=== PATIENT | male | born 1965 | race African-American/Black ===

== ENCOUNTER 2018-02-09 16:29 | Inpatient (IN) | payer BC ==
[~2018-02-09] VITALS: Ht 182.9 cm; Wt 123.7 kg
[2018-02-09 17:16] LABS: BASOPHIL (%) 1.1 % (0-1); BASOPHIL COUNT 0.1 K/uL (0-0.1); EOSINOPHIL (%) 5.2 % (0-5); EOSINOPHIL COUNT 0.6 K/uL (0-0.3); HEMATOCRIT 33.6 % (38.0-50.0); HEMOGLOBIN 11.2 G/DL (12.5-16.6); IMMATURE GRANULOCYTE (%) 0.4 % (0.0-0.7); LYMPHOCYTE (%) 15.7 % (15-42); LYMPHOCYTE COUNT 1.8 K/uL (1.0-2.8); MCH 24.4 PG (29.0-34.0); MCHC 33.3 G/DL (30.0-36.0); MCV 73.2 FL (86-99); MONOCYTE (%) 8.7 % (3-12); NEUTROPHIL (%) 68.9 % (45-76); PLATELET COUNT 592 K/uL (156-360); RBC DIS.WIDTH-CV 15.8 % (11.8-14.6); RED BLOOD COUNT 4.59 M/uL (4.00-5.50); WHITE BLOOD COUNT 11.6 K/uL (4.1-10.2)
[2018-02-09 17:17] LABS: INTER. NORMALIZED RATIO 1.2
[2018-02-09 17:21] LABS: ALBUMIN 3.5 g/dL (3.2-4.8); CHLORIDE 110 mEq/L (99-109); POTASSIUM 3.9 mEq/L (3.7-5.4); SODIUM 140 mEq/L (136-147)
[2018-02-09 17:23] LABS: BASE EXCESS -4.2 mEq/L (-3 to +3); BICARBONATE 19.6 mEq/L (22-26); CARBOXY HGB 1.9 % (0-5); COMMENTS - BLOOD GASES A+C+; DEVICE NCH; METHEMOGLOBIN 0.5 % (0-1.5); O2 FLOW 10 L/MIN; PCO2 31 mm Hg (35-45); PO2 67 mm Hg (80-100); SITE RR; TOTAL RESP RATE 33 resp/min; pH 7.41 (7.35-7.45)
[2018-02-09 17:23] LABS: GLUCOSE 105 mg/dL (70-99); TOTAL PROTEIN 7.1 g/dL (6.4-8.3)
[2018-02-09 17:25] LABS: TOTAL BILIRUBIN 0.4 mg/dL (0.0-1.0)
[2018-02-09 17:27] LABS: ALKALINE PHOSPHATASE 69 IU/L (3-129); CREATININE 1.9 mg/dL (0.6-1.3); GFR ESTIMATE (CALCULATED) 49 mL/min/ (58.99-99999)
[2018-02-09 17:28] LABS: UREA NITROGEN (BUN) 21 mg/dL (9-23)
[2018-02-09 17:29] LABS: AST (GOT) 16 IU/L (2-34)
[2018-02-09 17:30] LABS: ALT (GPT) 20 IU/L (3-49); LIPASE 30 U/L (1.0-51.0)
[2018-02-09 17:37] LABS: TROP-I INTERPRETATION NEGATIVE; TROPONIN-I 0.02 ng/mL (0.0-0.30)
[2018-02-09] MEDS ORDERED: MINOXIDIL10 MG PO (18:09)
[2018-02-09] MEDS ORDERED: PROAIR HFA8.5 GM IH (18:09)
[2018-02-09] MEDS ORDERED: NORVASC5 MG PO (18:10)
[2018-02-09] MEDS ORDERED: LABETALOL HCL200 MG PO (18:10)
[2018-02-09] MEDS ORDERED: FUROSEMIDE20 MG PO (18:10)
[2018-02-09] MEDS ORDERED: TYLENOL EXTRA500 MG PO (18:10)
[2018-02-09 19:28] LABS: APPEARANCE CLEAR ((CLEAR)); BILIRUBIN NEGATIVE; BLOOD NEGATIVE; COLOR YELLOW ((YELLOW)); GLUCOSE (STRIP) NEGATIVE; KETONES NEGATIVE; LEUKOCYTES NEGATIVE; NITRITE NEGATIVE; PROTEIN (STRIP) 100; SPECIFIC GRAVITY 1.014 (1.000-1.030); UROBILINOGEN 0.2 MG/DL (0.2-1.0)
[2018-02-09 19:30] LABS: BACTERIA NONE SEEN /HPF; EPITHELIAL CELLS NONE SEEN /HPF; MUCUS TRACE /LPF; RED BLOOD CELLS 0-5 /HPF (0-5); UCUL ADDED? NO; WHITE BLOOD CELLS 0-5 /HPF (0-5)
[2018-02-09 22:03] VITALS: BP 200/96
[2018-02-10 02:00] VITALS: BP 150/76
[2018-02-10 05:28] LABS: TROP-I INTERPRETATION NEGATIVE; TROPONIN-I 0.02 ng/mL (0.0-0.30)
[2018-02-10 06:20] LABS: BASOPHIL (%) 1.4 % (0-1); BASOPHIL COUNT 0.1 K/uL (0-0.1); EOSINOPHIL (%) 4.4 % (0-5); EOSINOPHIL COUNT 0.5 K/uL (0-0.3); HEMATOCRIT 32.1 % (38.0-50.0); HEMOGLOBIN 10.2 G/DL (12.5-16.6); IMMATURE GRANULOCYTE (%) 0.5 % (0.0-0.7); LYMPHOCYTE (%) 12.8 % (15-42); LYMPHOCYTE COUNT 1.3 K/uL (1.0-2.8); MCH 23.4 PG (29.0-34.0); MCHC 31.8 G/DL (30.0-36.0); MCV 73.6 FL (86-99); MONOCYTE (%) 8.8 % (3-12); MONOCYTE COUNT 0.9 K/uL (0-0.8); NEUTROPHIL (%) 72.1 % (45-76); NEUTROPHIL COUNT 7.4 K/uL (1.8-6.4); PLATELET COUNT 541 K/uL (156-360); RBC DIS.WIDTH-CV 15.8 % (11.8-14.6); RBC DIS.WIDTH-SD 42.4 % (39-53); RED BLOOD COUNT 4.36 M/uL (4.00-5.50); WHITE BLOOD COUNT 10.2 K/uL (4.1-10.2)
[2018-02-10 06:36] LABS: CHLORIDE 103 MEQ/L (99-109); CREATININE 1.8 MG/DL (0.6-1.3); GFR ESTIMATE (CALCULATED) 52 mL/min/ (58.99-99999); GLUCOSE 104 mg/dL (70-99); SODIUM 133 MEQ/L (136-147); UREA NITROGEN (BUN) 20 mg/dL (9-23)
[2018-02-10 06:39] LABS: POTASSIUM 4.7 MEQ/L (3.7-5.4)
[2018-02-10 07:15] VITALS: BP 145/76
[2018-02-10 10:57] LABS: TROP-I INTERPRETATION NEGATIVE; TROPONIN-I 0.01 ng/mL (0.0-0.30)
[2018-02-10 11:40] VITALS: BP 134/67
[2018-02-10 15:20] VITALS: BP 142/69
[2018-02-10 19:24] VITALS: BP 172/79
[2018-02-10 23:20] VITALS: BP 133/66
[2018-02-11 04:11] VITALS: BP 147/67
[2018-02-11 07:19] LABS: CHLORIDE 106 MEQ/L (99-109); CREATININE 1.8 MG/DL (0.6-1.3); GFR ESTIMATE (CALCULATED) 52 mL/min/ (58.99-99999); GLUCOSE 100 mg/dL (70-99); POTASSIUM 4.3 MEQ/L (3.7-5.4); SODIUM 139 MEQ/L (136-147); UREA NITROGEN (BUN) 20 mg/dL (9-23)
[2018-02-11 07:20] VITALS: BP 169/69
[2018-02-11 07:21] LABS: BASOPHIL (%) 0.8 % (0-1); BASOPHIL COUNT 0.1 K/uL (0-0.1); EOSINOPHIL (%) 4.6 % (0-5); EOSINOPHIL COUNT 0.4 K/uL (0-0.3); HEMATOCRIT 32.6 % (38.0-50.0); HEMOGLOBIN 10.1 G/DL (12.5-16.6); IMMATURE GRANULOCYTE (%) 0.4 % (0.0-0.7); LYMPHOCYTE (%) 14.7 % (15-42); LYMPHOCYTE COUNT 1.4 K/uL (1.0-2.8); MCH 23.1 PG (29.0-34.0); MCV 74.6 FL (86-99); MONOCYTE (%) 8.1 % (3-12); MONOCYTE COUNT 0.8 K/uL (0-0.8); NEUTROPHIL (%) 71.4 % (45-76); NEUTROPHIL COUNT 6.8 K/uL (1.8-6.4); PLATELET COUNT 524 K/uL (156-360); RBC DIS.WIDTH-CV 16.1 % (11.8-14.6); RBC DIS.WIDTH-SD 43.6 % (39-53); RED BLOOD COUNT 4.37 M/uL (4.00-5.50); WHITE BLOOD COUNT 9.5 K/uL (4.1-10.2)
[2018-02-11 11:50] VITALS: BP 158/70
[2018-02-11 17:04] VITALS: BP 141/68
[2018-02-11 19:08] VITALS: BP 138/67
[2018-02-11 23:13] VITALS: BP 135/62
[2018-02-12] VITALS (7 sets, daily range): BP systolic 123–186; BP diastolic 60–83
[2018-02-12 07:31] LABS: BASOPHIL (%) 0.9 % (0-1); BASOPHIL COUNT 0.1 K/uL (0-0.1); EOSINOPHIL (%) 6.8 % (0-5); EOSINOPHIL COUNT 0.6 K/uL (0-0.3); HEMATOCRIT 30.7 % (38.0-50.0); HEMOGLOBIN 9.8 G/DL (12.5-16.6); IMMATURE GRANULOCYTE (%) 0.4 % (0.0-0.7); LYMPHOCYTE (%) 15.6 % (15-42); LYMPHOCYTE COUNT 1.3 K/uL (1.0-2.8); MCH 23.7 PG (29.0-34.0); MCHC 31.9 G/DL (30.0-36.0); MCV 74.2 FL (86-99); MONOCYTE (%) 9.5 % (3-12); MONOCYTE COUNT 0.8 K/uL (0-0.8); NEUTROPHIL (%) 66.8 % (45-76); NEUTROPHIL COUNT 5.7 K/uL (1.8-6.4); PLATELET COUNT 557 K/uL (156-360); RBC DIS.WIDTH-CV 15.9 % (11.8-14.6); RBC DIS.WIDTH-SD 43.2 % (39-53); RED BLOOD COUNT 4.14 M/uL (4.00-5.50); WHITE BLOOD COUNT 8.6 K/uL (4.1-10.2)
[2018-02-12 08:08] LABS: ALBUMIN 2.8 G/DL (3.2-4.8); ALKALINE PHOSPHATASE 43 IU/L (3-129); ALT (GPT) 15 IU/L (3-49); AST (GOT) 16 IU/L (2-34); CHLORIDE 107 MEQ/L (99-109); CREATININE 1.8 MG/DL (0.6-1.3); GFR ESTIMATE (CALCULATED) 52 mL/min/ (58.99-99999); GLUCOSE 97 mg/dL (70-99); POTASSIUM 4.2 MEQ/L (3.7-5.4); SODIUM 137 MEQ/L (136-147); TOTAL BILIRUBIN 0.5 MG/DL (0.0-1.0); TOTAL PROTEIN 5.7 G/DL (6.4-8.3); UREA NITROGEN (BUN) 15 mg/dL (9-23)
[2018-02-13 04:10] VITALS: BP 157/78
[2018-02-13 06:57] LABS: HEMATOCRIT 28.9 % (38.0-50.0); HEMOGLOBIN 9.4 G/DL (12.5-16.6); MCHC 32.5 G/DL (30.0-36.0); MCV 73.7 FL (86-99); PLATELET COUNT 615 K/uL (156-360); RBC DIS.WIDTH-CV 15.9 % (11.8-14.6); RBC DIS.WIDTH-SD 42.5 % (39-53); RED BLOOD COUNT 3.92 M/uL (4.00-5.50); WHITE BLOOD COUNT 9.1 K/uL (4.1-10.2)
[2018-02-13 07:17] LABS: CHLORIDE 107 MEQ/L (99-109); CREATININE 1.8 MG/DL (0.6-1.3); GFR ESTIMATE (CALCULATED) 52 mL/min/ (58.99-99999); GLUCOSE 90 mg/dL (70-99); POTASSIUM 4.2 MEQ/L (3.7-5.4); UREA NITROGEN (BUN) 14 mg/dL (9-23)
[2018-02-13 07:28] LABS: SODIUM 144 MEQ/L (136-147)
[2018-02-13 07:40] VITALS: BP 177/82
[2018-02-13 12:12] VITALS: BP 170/80
[2018-02-13 16:03] VITALS: BP 172/79
[2018-02-13 20:05] VITALS: BP 173/81
[2018-02-14 00:10] VITALS: BP 140/65
[2018-02-14 04:15] VITALS: BP 188/90
[2018-02-14 06:10] LABS: HEMATOCRIT 32.1 % (38.0-50.0); HEMOGLOBIN 10.3 G/DL (12.5-16.6); MCH 23.5 PG (29.0-34.0); MCHC 32.1 G/DL (30.0-36.0); MCV 73.3 FL (86-99); PLATELET COUNT 608 K/uL (156-360); RBC DIS.WIDTH-CV 15.6 % (11.8-14.6); RBC DIS.WIDTH-SD 41.6 % (39-53); RED BLOOD COUNT 4.38 M/uL (4.00-5.50)
[2018-02-14 07:29] VITALS: BP 179/86
[2018-02-14 09:11] VITALS: BP 144/68
[2018-02-14] MEDS ORDERED: DUONEB 2.5-0.5 M3 ML AEROSOL (11:24)
[2018-02-14] MEDS ORDERED: LEVAQUIN500 MG PO (11:24)
[2018-02-14] MEDS ORDERED: DULERA 100 MCG/13 GM IH (11:24)
[2018-02-14] MEDS ORDERED: MUCINEX600 MG PO (11:24)
[2018-02-14 11:28] VITALS: BP 132/71
[2018-02-14] MEDS ORDERED: SYMBICORT60 INHALA1 IH (12:40)
== END 2018-02-14 13:25 | disposition home or self-care (01) | DRG 189 ==
LOC: EME 16:29 → EDOF 19:57 → 5EAST 19:57 → ENRESERV 19:59 → 5EAST 21:46
PROVIDERS: Emergency Medicine; Hospitalist; Internal Medicine
DX: J96.01 Acute respiratory failure with hypoxia (principal); J15.9 Unspecified bacterial pneumonia; E87.2 Acidosis; R71.8 Other abnormality of red blood cells; R74.8 Abnormal levels of other serum enzymes; E11.22 Type 2 diabetes mellitus with diabetic chronic kidney disease; N18.3 Chronic kidney disease, stage 3 (moderate); G47.30 Sleep apnea, unspecified; I10 Essential (primary) hypertension; D64.9 Anemia, unspecified; E66.01 Morbid (severe) obesity due to excess calories; Z68.36 Body mass index [BMI] 36.0-36.9, adult; Z87.891 Personal history of nicotine dependence; Z86.73 Personal history of transient ischemic attack (TIA), and cerebral infarction without residual deficits; Z23 Encounter for immunization
CPT/HCPCS: 36600; 71045; 71046; 71260; 80048; 80053; 81003; 82728; 82803; 83605; 83690; 83880; 84484; 85025; 85027; 85610; 85730; 87040; 87070; 87205; 87449; 87502; 90686; 93005; 94640; 94640 76; 94667; 94760; 94799; 99202; 99281; 99285; J0295; J0696; J1644; J1956; J7030; J7050

== ENCOUNTER 2018-02-18 18:25 | Inpatient (IN) | payer BC ==
[~2018-02-18] VITALS: Ht 182.9 cm; Wt 121.0 kg
[~2018-02-18 18:25] MED LIST: DULERA 100 MCG/13 GM IH; DUONEB 2.5-0.5 M3 ML AEROSOL; FUROSEMIDE20 MG PO; LABETALOL HCL200 MG PO; LEVAQUIN500 MG PO; MINOXIDIL10 MG PO; MUCINEX600 MG PO; NORVASC5 MG PO; PROAIR HFA8.5 GM IH; SYMBICORT60 INHALA1 IH; TYLENOL EXTRA500 MG PO
[2018-02-18 19:50] LABS: CARBON DIOXIDE (BICARBONATE) 23.9 MEQ/L (20-31)
[2018-02-18 20:01] LABS: CHLORIDE 108 mEq/L (99-109); POTASSIUM 4.2 mEq/L (3.7-5.4); SODIUM 141 mEq/L (136-147)
[2018-02-18 20:02] LABS: GLUCOSE 124 mg/dL (70-99)
[2018-02-18 20:04] LABS: BASOPHIL (%) 0.7 % (0-1); BASOPHIL COUNT 0.1 K/uL (0-0.1); EOSINOPHIL (%) 0.9 % (0-5); EOSINOPHIL COUNT 0.1 K/uL (0-0.3); HEMOGLOBIN 10.7 G/DL (12.5-16.6); IMMATURE GRANULOCYTE (%) 0.5 % (0.0-0.7); LYMPHOCYTE (%) 4.6 % (15-42); LYMPHOCYTE COUNT 0.6 K/uL (1.0-2.8); MCH 24.3 PG (29.0-34.0); MCHC 33.4 G/DL (30.0-36.0); MCV 72.6 FL (86-99); MONOCYTE (%) 7.7 % (3-12); NEUTROPHIL (%) 85.6 % (45-76); NEUTROPHIL COUNT 11.1 K/uL (1.8-6.4); PLATELET COUNT 623 K/uL (156-360); RBC DIS.WIDTH-CV 15.3 % (11.8-14.6); RBC DIS.WIDTH-SD 40.3 % (39-53); RED BLOOD COUNT 4.41 M/uL (4.00-5.50); WHITE BLOOD COUNT 12.9 K/uL (4.1-10.2)
[2018-02-18 20:06] LABS: CREATININE 2.2 mg/dL (0.6-1.3); GFR ESTIMATE (CALCULATED) 41 mL/min/ (58.99-99999)
[2018-02-18 20:07] LABS: UREA NITROGEN (BUN) 19 mg/dL (9-23)
[2018-02-18 20:15] LABS: TROP-I INTERPRETATION NEGATIVE; TROPONIN-I 0.03 ng/mL (0.0-0.30)
[2018-02-18] MEDS ORDERED: LEVOFLOXACIN500 MG PO (23:07)
[2018-02-18] MEDS ORDERED: LONITEN10 MG PO (23:09)
[2018-02-18] MEDS ORDERED: AMLODIPINE BESYL5 MG PO (23:10)
[2018-02-18] MEDS ORDERED: LONITEN2.5 MG PO (23:11)
[2018-02-18] MEDS ORDERED: MUCINEX600 MG PO (23:18)
[2018-02-19 04:12] VITALS: BP 136/66
[2018-02-19 06:15] LABS: BASOPHIL (%) 0.5 % (0-1); BASOPHIL COUNT 0.1 K/uL (0-0.1); EOSINOPHIL (%) 0 % (0-5); HEMATOCRIT 31.8 % (38.0-50.0); HEMOGLOBIN 10.2 G/DL (12.5-16.6); IMMATURE GRANULOCYTE (%) 0.4 % (0.0-0.7); LYMPHOCYTE (%) 3.7 % (15-42); LYMPHOCYTE COUNT 0.5 K/uL (1.0-2.8); MCH 24.1 PG (29.0-34.0); MCHC 32.1 G/DL (30.0-36.0); MONOCYTE (%) 1.7 % (3-12); MONOCYTE COUNT 0.2 K/uL (0-0.8); NEUTROPHIL (%) 93.7 % (45-76); NEUTROPHIL COUNT 11.3 K/uL (1.8-6.4); PLATELET COUNT 597 K/uL (156-360); RBC DIS.WIDTH-CV 15.8 % (11.8-14.6); RBC DIS.WIDTH-SD 42.8 % (39-53); RED BLOOD COUNT 4.24 M/uL (4.00-5.50); WHITE BLOOD COUNT 12.1 K/uL (4.1-10.2)
[2018-02-19 06:31] LABS: CHLORIDE 106 MEQ/L (99-109); CREATININE 2.1 MG/DL (0.6-1.3); GFR ESTIMATE (CALCULATED) 43 mL/min/ (58.99-99999); GLUCOSE 130 mg/dL (70-99); SODIUM 138 MEQ/L (136-147); UREA NITROGEN (BUN) 21 mg/dL (9-23)
[2018-02-19 06:33] LABS: POTASSIUM 5.2 MEQ/L (3.7-5.4)
[2018-02-19 07:00] VITALS: BP 145/69
[2018-02-19 11:08] VITALS: BP 127/67
[2018-02-19 15:18] VITALS: BP 124/62
[2018-02-19 19:21] VITALS: BP 133/68
[2018-02-19 23:04] VITALS: BP 130/62
[2018-02-20 03:26] VITALS: BP 118/58
[2018-02-20 07:02] LABS: BASOPHIL (%) 0.2 % (0-1); EOSINOPHIL (%) 0 % (0-5); HEMATOCRIT 30.7 % (38.0-50.0); HEMOGLOBIN 9.7 G/DL (12.5-16.6); IMMATURE GRANULOCYTE (%) 0.3 % (0.0-0.7); LYMPHOCYTE (%) 3.9 % (15-42); LYMPHOCYTE COUNT 0.5 K/uL (1.0-2.8); MCH 23.3 PG (29.0-34.0); MCHC 31.6 G/DL (30.0-36.0); MCV 73.8 FL (86-99); MONOCYTE COUNT 0.4 K/uL (0-0.8); NEUTROPHIL (%) 92.6 % (45-76); NEUTROPHIL COUNT 11.3 K/uL (1.8-6.4); PLATELET COUNT 626 K/uL (156-360); RBC DIS.WIDTH-CV 15.4 % (11.8-14.6); RED BLOOD COUNT 4.16 M/uL (4.00-5.50); WHITE BLOOD COUNT 12.2 K/uL (4.1-10.2)
[2018-02-20 07:23] LABS: CHLORIDE 106 MEQ/L (99-109); CREATININE 2.3 MG/DL (0.6-1.3); GFR ESTIMATE (CALCULATED) 39 mL/min/ (58.99-99999); GLUCOSE 140 mg/dL (70-99); SODIUM 138 MEQ/L (136-147)
[2018-02-20 07:25] VITALS: BP 111/68
[2018-02-20 07:30] VITALS: BP 134/69
[2018-02-20 07:33] LABS: UREA NITROGEN (BUN) 34 mg/dL (9-23)
[2018-02-20 11:50] VITALS: BP 121/72
[2018-02-20 16:57] VITALS: BP 167/83
[2018-02-20 18:21] LABS: APPEARANCE CLEAR ((CLEAR)); BILIRUBIN NEGATIVE; BLOOD NEGATIVE; COLOR STRAW ((YELLOW)); GLUCOSE (STRIP) NEGATIVE; KETONES NEGATIVE; LEUKOCYTES NEGATIVE; NITRITE NEGATIVE; PROTEIN (STRIP) 30; SPECIFIC GRAVITY 1.012 (1.000-1.030); UROBILINOGEN 0.2 MG/DL (0.2-1.0)
[2018-02-20 18:44] LABS: UR CREATININE CONCENTRATION 79.7 MG/DL
[2018-02-20 19:09] VITALS: BP 147/75
[2018-02-21] VITALS: BP 137/67
[2018-02-21 04:04] VITALS: BP 129/67
[2018-02-21 06:54] LABS: BASOPHIL (%) 0 % (0-1); EOSINOPHIL (%) 0 % (0-5); HEMATOCRIT 30.1 % (38.0-50.0); HEMOGLOBIN 9.7 G/DL (12.5-16.6); IMMATURE GRANULOCYTE (%) 0.3 % (0.0-0.7); LYMPHOCYTE COUNT 0.4 K/uL (1.0-2.8); MCH 23.5 PG (29.0-34.0); MCHC 32.2 G/DL (30.0-36.0); MCV 72.9 FL (86-99); MONOCYTE (%) 3.8 % (3-12); MONOCYTE COUNT 0.5 K/uL (0-0.8); NEUTROPHIL (%) 92.9 % (45-76); NEUTROPHIL COUNT 11.1 K/uL (1.8-6.4); NRBC (%) 0.3 /100 WBC (0-0); PLATELET COUNT 592 K/uL (156-360); RBC DIS.WIDTH-CV 15.3 % (11.8-14.6); RBC DIS.WIDTH-SD 40.4 % (39-53); RED BLOOD COUNT 4.13 M/uL (4.00-5.50)
[2018-02-21 06:59] LABS: C4 COMPLEMENT 44 MG/DL (10-40)
[2018-02-21 07:07] LABS: ALBUMIN 3.4 G/DL (3.2-4.8); ALKALINE PHOSPHATASE 50 IU/L (3-129); ALT (GPT) 65 IU/L (3-49); AST (GOT) 51 IU/L (2-34); CHLORIDE 102 MEQ/L (99-109); CREATININE 2.5 MG/DL (0.6-1.3); GFR ESTIMATE (CALCULATED) 35 mL/min/ (58.99-99999); GLUCOSE 142 mg/dL (70-99); POTASSIUM 4.8 MEQ/L (3.7-5.4); SODIUM 137 MEQ/L (136-147); TOTAL BILIRUBIN 0.4 MG/DL (0.0-1.0); TOTAL PROTEIN 6.6 G/DL (6.4-8.3); UREA NITROGEN (BUN) 51 mg/dL (9-23)
[2018-02-21 07:57] VITALS: BP 133/72
[2018-02-21 07:57] LABS: INTACT PARATHYROID HORMONE 194 pg/mL (10-69)
[2018-02-21 09:59] LABS: A/G RATIO 1.1 (1.1-1.8); ALBUMIN 3.4 G/DL (3.4-5.0); CHLORIDE 103 MEQ/L (99-109); CREATININE 2.4 MG/DL (0.6-1.3); GFR ESTIMATE (CALCULATED) 37 mL/min/ (58.99-99999); GLOBULINS 3.2 G/DL (2.3-3.5); GLUCOSE 143 mg/dL (70-99); MAGNESIUM 2.2 mg/dl (1.3-2.7); PHOSPHORUS 5.6 mg/dL (2.5-4.9); POTASSIUM 4.7 MEQ/L (3.7-5.4); SODIUM 137 MEQ/L (136-147); TOTAL PROTEIN 6.6 G/DL (6.4-8.2); URIC ACID 10.1 mg/dL (3.1-9.2)
[2018-02-21 10:02] LABS: UREA NITROGEN (BUN) 53 mg/dL (9-23)
[2018-02-21 11:38] VITALS: BP 137/64
[2018-02-21 12:12] LABS: HEPATITIS B SURFACE ANTIGEN Nonreactive
[2018-02-21 12:13] LABS: HEPATITIS C ANTIBODY Nonreactive
[2018-02-21 12:14] LABS: ANTI-HEPATITIS A VIRUS (IGM) Nonreactive; ANTI-HEPATITIS B CORE (IGM) Nonreactive
[2018-02-21 12:15] LABS: HIV-1/2 AB/AG COMBO Nonreactive
[2018-02-21 15:00] VITALS: BP 158/76
[2018-02-21 19:19] VITALS: BP 163/70
[2018-02-22] VITALS (7 sets, daily range): BP systolic 127–171; BP diastolic 72–84
[2018-02-22 07:01] LABS: BASOPHIL (%) 0 % (0-1); EOSINOPHIL (%) 0 % (0-5); HEMATOCRIT 29.6 % (38.0-50.0); HEMOGLOBIN 9.7 G/DL (12.5-16.6); IMMATURE GRANULOCYTE (%) 0.4 % (0.0-0.7); LYMPHOCYTE (%) 4.2 % (15-42); LYMPHOCYTE COUNT 0.4 K/uL (1.0-2.8); MCH 23.8 PG (29.0-34.0); MCHC 32.8 G/DL (30.0-36.0); MCV 72.7 FL (86-99); MONOCYTE (%) 3.7 % (3-12); MONOCYTE COUNT 0.4 K/uL (0-0.8); NEUTROPHIL (%) 91.7 % (45-76); NEUTROPHIL COUNT 9.1 K/uL (1.8-6.4); NRBC (%) 0.3 /100 WBC (0-0); PLATELET COUNT 574 K/uL (156-360); RBC DIS.WIDTH-SD 39.8 % (39-53); RED BLOOD COUNT 4.07 M/uL (4.00-5.50)
[2018-02-22 07:20] LABS: ALBUMIN 3.3 G/DL (3.2-4.8); ALKALINE PHOSPHATASE 48 IU/L (3-129); ALT (GPT) 80 IU/L (3-49); AST (GOT) 41 IU/L (2-34); CHLORIDE 101 MEQ/L (99-109); CREATININE 2.5 MG/DL (0.6-1.3); GFR ESTIMATE (CALCULATED) 35 mL/min/ (58.99-99999); GLUCOSE 129 mg/dL (70-99); POTASSIUM 4.8 MEQ/L (3.7-5.4); SODIUM 137 MEQ/L (136-147); TOTAL BILIRUBIN 0.4 MG/DL (0.0-1.0); TOTAL PROTEIN 6.4 G/DL (6.4-8.3); UREA NITROGEN (BUN) 62 mg/dL (9-23)
[2018-02-23 06:38] LABS: ALBUMIN 3.3 G/DL (3.2-4.8); ALKALINE PHOSPHATASE 43 IU/L (3-129); ALT (GPT) 75 IU/L (3-49); AST (GOT) 29 IU/L (2-34); CHLORIDE 102 MEQ/L (99-109); CREATININE 2.2 MG/DL (0.6-1.3); GFR ESTIMATE (CALCULATED) 41 mL/min/ (58.99-99999); GLUCOSE 110 mg/dL (70-99); POTASSIUM 4.3 MEQ/L (3.7-5.4); SODIUM 136 MEQ/L (136-147); TOTAL BILIRUBIN 0.4 MG/DL (0.0-1.0); UREA NITROGEN (BUN) 60 mg/dL (9-23)
[2018-02-23 06:52] LABS: BASOPHIL (%) 0 % (0-1); EOSINOPHIL (%) 0.1 % (0-5); HEMATOCRIT 29.9 % (38.0-50.0); HEMOGLOBIN 9.6 G/DL (12.5-16.6); IMMATURE GRANULOCYTE (%) 0.5 % (0.0-0.7); LYMPHOCYTE (%) 10.1 % (15-42); LYMPHOCYTE COUNT 1.1 K/uL (1.0-2.8); MCH 23.4 PG (29.0-34.0); MCHC 32.1 G/DL (30.0-36.0); MCV 72.7 FL (86-99); MONOCYTE (%) 11.7 % (3-12); MONOCYTE COUNT 1.2 K/uL (0-0.8); NEUTROPHIL (%) 77.6 % (45-76); NEUTROPHIL COUNT 8.2 K/uL (1.8-6.4); PLATELET COUNT 575 K/uL (156-360); RBC DIS.WIDTH-CV 14.9 % (11.8-14.6); RBC DIS.WIDTH-SD 39.4 % (39-53); RED BLOOD COUNT 4.11 M/uL (4.00-5.50); WHITE BLOOD COUNT 10.6 K/uL (4.1-10.2)
[2018-02-23 07:25] VITALS: BP 167/76
[2018-02-23 11:26] VITALS: BP 134/66
[2018-02-23 14:59] VITALS: BP 145/73
[2018-02-23 19:52] VITALS: BP 142/66
[2018-02-24] VITALS (7 sets, daily range): BP systolic 127–166; BP diastolic 60–80
[2018-02-25 06:22] LABS: CHLORIDE 102 MEQ/L (99-109); CREATININE 2.3 MG/DL (0.6-1.3); GFR ESTIMATE (CALCULATED) 39 mL/min/ (58.99-99999); GLUCOSE 96 mg/dL (70-99); POTASSIUM 3.8 MEQ/L (3.7-5.4); SODIUM 136 MEQ/L (136-147); UREA NITROGEN (BUN) 59 mg/dL (9-23)
[2018-02-25 07:26] VITALS: BP 153/75
[2018-02-25] MEDS ORDERED: ERGOCALCIF50000 UNIT PO (09:30)
[2018-02-25] MEDS ORDERED: PREDNISONE10 MG PO (09:30)
[2018-02-25] MEDS ORDERED: LASIX20 MG PO (09:30)
[2018-02-25 20:17] LABS: GLOMERULAR BASEMENT MEMB ABY+ <1.0 AI (<1.0); MYELOPEROXIDASE ANTIBODY (MPO) <1.0 AI (<1.0); PROTEINASE-3 ANTIBODY+ <1.0 AI (<1.0)
[2018-02-27 08:31] LABS: ALBUMIN 3.06 G/DL (3.6-4.9); ALPHA-1 GLOBULIN 0.49 G/DL (0.15-0.40); ALPHA-2 GLOBULIN 1.16 G/DL (0.45-0.85); BETA-GLOBULIN 0.83 G/DL (0.65-1.15); GAMMA-GLOBULIN 1.07 G/DL (0.60-1.35)
== END 2018-02-25 12:02 | disposition home or self-care (01) | DRG 189 ==
LOC: EME 18:25 → 5EAST 22:13 → EDOF 22:13 → ENRESERV 22:17 → 5EAST 02-19 00:14 → ENPENDDIS 02-25 → 5EAST 02-25 12:02
PROVIDERS: Emergency Medicine; Internal Medicine; Internal Medicine Nephrology; Physician Assistant
DX: J96.01 Acute respiratory failure with hypoxia (principal); J18.9 Pneumonia, unspecified organism; Y95 Nosocomial condition; N17.0 Acute kidney failure with tubular necrosis; I13.0 Hypertensive heart and chronic kidney disease with heart failure and stage 1 through stage 4 chronic kidney disease, or unspecified chronic kidney disease; I50.33 Acute on chronic diastolic (congestive) heart failure; E11.22 Type 2 diabetes mellitus with diabetic chronic kidney disease; N18.3 Chronic kidney disease, stage 3 (moderate); I35.0 Nonrheumatic aortic (valve) stenosis; G40.909 Epilepsy, unspecified, not intractable, without status epilepticus; F10.11 Alcohol abuse, in remission; E66.9 Obesity, unspecified; Z86.73 Personal history of transient ischemic attack (TIA), and cerebral infarction without residual deficits; Z87.01 Personal history of pneumonia (recurrent); Z87.891 Personal history of nicotine dependence
CPT/HCPCS: 71045; 76770; 80048; 80053; 80074; 80202; 81003; 82306; 82570; 82803; 82948; 83520 90; 83605; 83735; 83880; 83883 90; 83970; 84100; 84145 90; 84156; 84165; 84484; 84550; 85025; 85027; 86021 90; 86038; 86160; 86162 90; 87040; 87070; 87205; 87389; 87449; 93306; 93970; 94010; 94640; 94640 76; 94760; 94799; 99202; 99281; 99284; J0456; J0692; J1644; J1815; J1940; J2920; J3370; J7030; J7512

== ENCOUNTER 2018-03-06 19:16 | Inpatient (IN) | payer BC ==
[~2018-03-06] VITALS: Ht 182.9 cm; Wt 123.4 kg
[~2018-03-06 19:16] MED LIST changes: +AMLODIPINE BESYL5 MG PO; +ERGOCALCIF50000 UNIT PO; +LASIX20 MG PO; +LEVOFLOXACIN500 MG PO; +LONITEN10 MG PO; +LONITEN2.5 MG PO; +PREDNISONE10 MG PO
[2018-03-06 21:06] LABS: ALBUMIN 3.5 g/dL (3.2-4.8); CHLORIDE 106 mEq/L (99-109); POTASSIUM 3.9 mEq/L (3.7-5.4); SODIUM 140 mEq/L (136-147)
[2018-03-06 21:08] LABS: GLUCOSE 116 mg/dL (70-99); TOTAL PROTEIN 6.1 g/dL (6.4-8.3)
[2018-03-06 21:10] LABS: TOTAL BILIRUBIN 1.2 mg/dL (0.0-1.0)
[2018-03-06 21:12] LABS: ALKALINE PHOSPHATASE 59 IU/L (3-129); CREATININE 2.3 mg/dL (0.6-1.3); GFR ESTIMATE (CALCULATED) 39 mL/min/ (58.99-99999)
[2018-03-06 21:13] LABS: UREA NITROGEN (BUN) 35 mg/dL (9-23)
[2018-03-06 21:14] LABS: AST (GOT) 13 IU/L (2-34)
[2018-03-06 21:15] LABS: ALT (GPT) 21 IU/L (3-49)
[2018-03-06 21:16] LABS: TROP-I INTERPRETATION NEGATIVE; TROPONIN-I 0.03 ng/mL (0.0-0.30)
[2018-03-06 21:22] LABS: BASE EXCESS 2.1 mEq/L (-3 to +3); CARBOXY HGB 2.7 % (0-5); METHEMOGLOBIN 0.9 % (0-1.5); PCO2 32 mm Hg (35-45); PO2 81 mm Hg (80-100)
[2018-03-06 21:23] LABS: COMMENTS - BLOOD GASES A+C+; DEVICE VENTI-MASK; FI02 50 %; O2 FLOW 12 L/MIN; SITE RR
[2018-03-06 21:41] LABS: HEMATOCRIT 29.8 % (38.0-50.0); HEMOGLOBIN 9.9 G/DL (12.5-16.6); MCH 24.2 PG (29.0-34.0); MCHC 33.2 G/DL (30.0-36.0); MCV 72.9 FL (86-99); RBC DIS.WIDTH-CV 16.2 % (11.8-14.6); RBC DIS.WIDTH-SD 42.5 % (39-53); RED BLOOD COUNT 4.09 M/uL (4.00-5.50); WHITE BLOOD COUNT 13.1 K/uL (4.1-10.2)
[2018-03-06 21:47] LABS: BASOPHIL (%) 0.4 % (0-1); BASOPHIL COUNT 0.1 K/uL (0-0.1); EOSINOPHIL (%) 1.9 % (0-5); EOSINOPHIL COUNT 0.3 K/uL (0-0.3); IMMATURE GRANULOCYTE (%) 0.8 % (0.0-0.7); LYMPHOCYTE (%) 7.6 % (15-42); MONOCYTE (%) 9.5 % (3-12); MONOCYTE COUNT 1.2 K/uL (0-0.8); NEUTROPHIL (%) 79.8 % (45-76); NEUTROPHIL COUNT 10.5 K/uL (1.8-6.4)
[2018-03-06 22:16] LABS: PLAT.SUFFICIENCY ADEQUATE; PLATELET COUNT 255 K/uL (156-360)
[2018-03-06] MEDS ORDERED: ERGOCALCIF50000 UNIT PO (22:33)
[2018-03-06 23:07] LABS: APPEARANCE CLEAR ((CLEAR)); BILIRUBIN NEGATIVE; BLOOD NEGATIVE; COLOR YELLOW ((YELLOW)); GLUCOSE (STRIP) NEGATIVE; KETONES NEGATIVE; LEUKOCYTES NEGATIVE; NITRITE NEGATIVE; PROTEIN (STRIP) 100; SPECIFIC GRAVITY 1.015 (1.000-1.030); UROBILINOGEN 0.2 MG/DL (0.2-1.0)
[2018-03-06 23:24] LABS: BACTERIA NONE SEEN /HPF; EPITHELIAL CELLS NONE SEEN /HPF; MUCUS NONE SEEN /LPF; RED BLOOD CELLS 0-5 /HPF (0-5); UCUL ADDED? NO; WHITE BLOOD CELLS 0-5 /HPF (0-5)
[2018-03-07] VITALS (7 sets, daily range): BP systolic 110–155; BP diastolic 72–90
[2018-03-07 05:58] LABS: TROP-I INTERPRETATION NEGATIVE; TROPONIN-I 0.04 ng/mL (0.0-0.30)
[2018-03-07 09:31] LABS: HEMATOCRIT 30.9 % (38.0-50.0); HEMOGLOBIN 10.1 G/DL (12.5-16.6); MCH 24.1 PG (29.0-34.0); MCHC 32.7 G/DL (30.0-36.0); MCV 73.7 FL (86-99); PLATELET COUNT 247 K/uL (156-360); RBC DIS.WIDTH-CV 16.4 % (11.8-14.6); RBC DIS.WIDTH-SD 43.6 % (39-53); RED BLOOD COUNT 4.19 M/uL (4.00-5.50)
[2018-03-07 09:58] LABS: CHLORIDE 104 MEQ/L (99-109); CREATININE 2.2 MG/DL (0.6-1.3); GFR ESTIMATE (CALCULATED) 41 mL/min/ (58.99-99999); GLUCOSE 98 mg/dL (70-99); POTASSIUM 4.2 MEQ/L (3.7-5.4); SODIUM 140 MEQ/L (136-147); UREA NITROGEN (BUN) 30 mg/dL (9-23)
[2018-03-07 10:14] LABS: 6-HOUR TOBRAMYCIN 8.4 UG/ML
[2018-03-07 20:46] LABS: BASE EXCESS -1.1 mEq/L (-3 to +3); BICARBONATE 23.5 mEq/L (22-26); CARBOXY HGB 2.6 % (0-5); METHEMOGLOBIN 1.7 % (0-1.5)
[2018-03-07 20:47] LABS: COMMENTS - BLOOD GASES C+A+; DEVICE NRBM; FI02 100 %; O2 FLOW 15 L/MIN; PCO2 38 mm Hg (35-45); PO2 53 mm Hg (80-100); SITE RR; TOTAL RESP RATE 28 resp/min
[2018-03-07 21:36] LABS: TROP-I INTERPRETATION NEGATIVE; TROPONIN-I 0.04 ng/mL (0.0-0.30)
[2018-03-08 03:30] VITALS: BP 115/69
[2018-03-08 05:46] LABS: BASOPHIL (%) 0.3 % (0-1); EOSINOPHIL (%) 0 % (0-5); HEMOGLOBIN 9.8 G/DL (12.5-16.6); IMMATURE GRANULOCYTE (%) 0.5 % (0.0-0.7); LYMPHOCYTE (%) 3.3 % (15-42); LYMPHOCYTE COUNT 0.4 K/uL (1.0-2.8); MCH 23.3 PG (29.0-34.0); MCHC 31.6 G/DL (30.0-36.0); MCV 73.8 FL (86-99); MONOCYTE (%) 1.4 % (3-12); MONOCYTE COUNT 0.2 K/uL (0-0.8); NEUTROPHIL (%) 94.5 % (45-76); NEUTROPHIL COUNT 10.8 K/uL (1.8-6.4); PLATELET COUNT 218 K/uL (156-360); RBC DIS.WIDTH-SD 43.1 % (39-53); WHITE BLOOD COUNT 11.5 K/uL (4.1-10.2)
[2018-03-08 05:51] LABS: CHLORIDE 104 MEQ/L (99-109); CREATININE 2.5 MG/DL (0.6-1.3); GFR ESTIMATE (CALCULATED) 35 mL/min/ (58.99-99999); GLUCOSE 134 mg/dL (70-99); SODIUM 139 MEQ/L (136-147); UREA NITROGEN (BUN) 34 mg/dL (9-23)
[2018-03-08 07:50] VITALS: BP 137/73
[2018-03-08 11:15] VITALS: BP 117/56
[2018-03-08 15:32] VITALS: BP 122/60
[2018-03-08 19:18] VITALS: BP 118/60
[2018-03-08 23:54] VITALS: BP 118/56
[2018-03-09 04:02] VITALS: BP 130/69
[2018-03-09 05:58] LABS: IRON 11 MCG/DL (35-150); TRANSFERRIN (TIBC) 198.3 mg/dL (215-380); TRANSFERRIN SATUR. 6 % (20-55)
[2018-03-09 07:35] LABS: FERRITIN 100 NG/ML (22-322)
[2018-03-09 07:45] VITALS: BP 120/68
[2018-03-09 10:01] LABS: CHLORIDE 106 MEQ/L (99-109); POTASSIUM 4.4 MEQ/L (3.7-5.4); SODIUM 140 MEQ/L (136-147)
[2018-03-09 10:06] LABS: CREATININE 2.5 MG/DL (0.6-1.3); GFR ESTIMATE (CALCULATED) 35 mL/min/ (58.99-99999); GLUCOSE 151 mg/dL (70-99); UREA NITROGEN (BUN) 45 mg/dL (9-23)
[2018-03-09 12:43] VITALS: BP 121/56
[2018-03-09 15:13] VITALS: BP 125/62
[2018-03-09 19:44] VITALS: BP 122/60
[2018-03-10 00:01] VITALS: BP 118/62
[2018-03-10 04:29] VITALS: BP 133/72
[2018-03-10 05:35] LABS: BASOPHIL (%) 0.1 % (0-1); EOSINOPHIL (%) 0 % (0-5); HEMATOCRIT 27.9 % (38.0-50.0); HEMOGLOBIN 9.3 G/DL (12.5-16.6); IMMATURE GRANULOCYTE (%) 0.3 % (0.0-0.7); LYMPHOCYTE (%) 2.2 % (15-42); LYMPHOCYTE COUNT 0.3 K/uL (1.0-2.8); MCHC 33.3 G/DL (30.0-36.0); MCV 72.1 FL (86-99); MONOCYTE (%) 2.3 % (3-12); MONOCYTE COUNT 0.3 K/uL (0-0.8); NEUTROPHIL (%) 95.1 % (45-76); NEUTROPHIL COUNT 11.7 K/uL (1.8-6.4); NRBC (%) 0.2 /100 WBC (0-0); PLATELET COUNT 227 K/uL (156-360); RBC DIS.WIDTH-CV 15.5 % (11.8-14.6); RBC DIS.WIDTH-SD 40.1 % (39-53); RED BLOOD COUNT 3.87 M/uL (4.00-5.50); WHITE BLOOD COUNT 12.4 K/uL (4.1-10.2)
[2018-03-10 05:59] LABS: CHLORIDE 106 MEQ/L (99-109); CREATININE 2.6 MG/DL (0.6-1.3); GFR ESTIMATE (CALCULATED) 34 mL/min/ (58.99-99999); GLUCOSE 131 mg/dL (70-99); MAGNESIUM 2.1 mg/dl (1.3-2.7); POTASSIUM 4.7 MEQ/L (3.7-5.4); SODIUM 138 MEQ/L (136-147); UREA NITROGEN (BUN) 55 mg/dL (9-23)
[2018-03-10 08:07] VITALS: BP 137/67
[2018-03-10 12:14] VITALS: BP 122/60
[2018-03-10 15:30] VITALS: BP 130/62
[2018-03-10 21:08] VITALS: BP 148/72
[2018-03-11] VITALS (7 sets, daily range): BP systolic 129–164; BP diastolic 63–81
[2018-03-11 05:26] LABS: BASOPHIL (%) 0 % (0-1); EOSINOPHIL (%) 0 % (0-5); HEMATOCRIT 28.9 % (38.0-50.0); HEMOGLOBIN 9.6 G/DL (12.5-16.6); IMMATURE GRANULOCYTE (%) 0.5 % (0.0-0.7); LYMPHOCYTE (%) 3.3 % (15-42); LYMPHOCYTE COUNT 0.3 K/uL (1.0-2.8); MCH 23.9 PG (29.0-34.0); MCHC 33.2 G/DL (30.0-36.0); MCV 71.9 FL (86-99); MONOCYTE (%) 3.7 % (3-12); MONOCYTE COUNT 0.4 K/uL (0-0.8); NEUTROPHIL (%) 92.5 % (45-76); NRBC (%) 0.2 /100 WBC (0-0); PLATELET COUNT 247 K/uL (156-360); RBC DIS.WIDTH-CV 15.2 % (11.8-14.6); RBC DIS.WIDTH-SD 39.5 % (39-53); RED BLOOD COUNT 4.02 M/uL (4.00-5.50); WHITE BLOOD COUNT 9.7 K/uL (4.1-10.2)
[2018-03-11 05:47] LABS: CHLORIDE 106 MEQ/L (99-109); CREATININE 2.6 MG/DL (0.6-1.3); GFR ESTIMATE (CALCULATED) 34 mL/min/ (58.99-99999); GLUCOSE 128 mg/dL (70-99); MAGNESIUM 2.2 mg/dl (1.3-2.7); POTASSIUM 4.5 MEQ/L (3.7-5.4); SODIUM 138 MEQ/L (136-147); UREA NITROGEN (BUN) 59 mg/dL (9-23)
[2018-03-12 03:52] VITALS: BP 134/70
[2018-03-12 06:51] LABS: BASOPHIL (%) 0.1 % (0-1); EOSINOPHIL (%) 0 % (0-5); HEMATOCRIT 31.8 % (38.0-50.0); HEMOGLOBIN 10.1 G/DL (12.5-16.6); IMMATURE GRANULOCYTE (%) 0.3 % (0.0-0.7); LYMPHOCYTE (%) 5.3 % (15-42); LYMPHOCYTE COUNT 0.5 K/uL (1.0-2.8); MCH 23.1 PG (29.0-34.0); MCHC 31.8 G/DL (30.0-36.0); MCV 72.8 FL (86-99); MONOCYTE (%) 5.4 % (3-12); MONOCYTE COUNT 0.5 K/uL (0-0.8); NEUTROPHIL (%) 88.9 % (45-76); PLATELET COUNT 256 K/uL (156-360); RBC DIS.WIDTH-CV 15.2 % (11.8-14.6); RED BLOOD COUNT 4.37 M/uL (4.00-5.50)
[2018-03-12 06:58] LABS: CHLORIDE 103 MEQ/L (99-109); CREATININE 2.5 MG/DL (0.6-1.3); GFR ESTIMATE (CALCULATED) 35 mL/min/ (58.99-99999); GLUCOSE 110 mg/dL (70-99); POTASSIUM 4.4 MEQ/L (3.7-5.4); SODIUM 138 MEQ/L (136-147); UREA NITROGEN (BUN) 56 mg/dL (9-23)
[2018-03-12 07:49] VITALS: BP 166/82
[2018-03-12 11:12] VITALS: BP 129/60
[2018-03-12 16:14] VITALS: BP 143/69
[2018-03-12 19:00] VITALS: BP 132/67
[2018-03-12 23:30] VITALS: BP 146/78
[2018-03-13 03:25] VITALS: BP 139/77
[2018-03-13 06:50] LABS: BASOPHIL (%) 0.1 % (0-1); EOSINOPHIL (%) 2.4 % (0-5); EOSINOPHIL COUNT 0.2 K/uL (0-0.3); HEMATOCRIT 29.9 % (38.0-50.0); HEMOGLOBIN 9.4 G/DL (12.5-16.6); IMMATURE GRANULOCYTE (%) 0.3 % (0.0-0.7); LYMPHOCYTE (%) 15.2 % (15-42); LYMPHOCYTE COUNT 1.4 K/uL (1.0-2.8); MCH 23.2 PG (29.0-34.0); MCHC 31.4 G/DL (30.0-36.0); MCV 73.8 FL (86-99); MONOCYTE (%) 11.2 % (3-12); NEUTROPHIL (%) 70.8 % (45-76); NEUTROPHIL COUNT 6.3 K/uL (1.8-6.4); PLATELET COUNT 241 K/uL (156-360); RBC DIS.WIDTH-CV 15.4 % (11.8-14.6); RBC DIS.WIDTH-SD 41.1 % (39-53); RED BLOOD COUNT 4.05 M/uL (4.00-5.50); WHITE BLOOD COUNT 8.9 K/uL (4.1-10.2)
[2018-03-13 07:09] LABS: CHLORIDE 107 MEQ/L (99-109); CREATININE 2.4 MG/DL (0.6-1.3); GFR ESTIMATE (CALCULATED) 37 mL/min/ (58.99-99999); GLUCOSE 91 mg/dL (70-99); POTASSIUM 4.5 MEQ/L (3.7-5.4); SODIUM 140 MEQ/L (136-147); UREA NITROGEN (BUN) 56 mg/dL (9-23)
[2018-03-13 07:20] VITALS: BP 144/69
[2018-03-13 12:35] VITALS: BP 129/61
[2018-03-13 15:06] LABS: BASE EXCESS -2.4 mEq/L (-3 to +3); BICARBONATE 21.1 mEq/L (22-26); CARBOXY HGB 2.4 % (0-5); METHEMOGLOBIN 1.4 % (0-1.5); PO2 58 mm Hg (80-100); pH 7.44 (7.35-7.45)
[2018-03-13 15:07] LABS: COMMENTS - BLOOD GASES A+C+; DEVICE ROOM AIR; FI02 21 %; PCO2 31 mm Hg (35-45); SITE RR
[2018-03-13 16:56] VITALS: BP 137/66
[2018-03-13 19:48] VITALS: BP 145/67
[2018-03-14 03:50] VITALS: BP 144/74
[2018-03-14 06:08] LABS: CHLORIDE 105 MEQ/L (99-109); CREATININE 2.3 MG/DL (0.6-1.3); GFR ESTIMATE (CALCULATED) 39 mL/min/ (58.99-99999); GLUCOSE 94 mg/dL (70-99); POTASSIUM 4.3 MEQ/L (3.7-5.4); SODIUM 137 MEQ/L (136-147); UREA NITROGEN (BUN) 50 mg/dL (9-23)
[2018-03-14 06:15] LABS: BASOPHIL (%) 0 % (0-1); EOSINOPHIL (%) 2.2 % (0-5); EOSINOPHIL COUNT 0.2 K/uL (0-0.3); HEMATOCRIT 30.1 % (38.0-50.0); HEMOGLOBIN 9.7 G/DL (12.5-16.6); IMMATURE GRANULOCYTE (%) 0.5 % (0.0-0.7); LYMPHOCYTE (%) 15.4 % (15-42); LYMPHOCYTE COUNT 1.3 K/uL (1.0-2.8); MCH 23.2 PG (29.0-34.0); MCHC 32.2 G/DL (30.0-36.0); MCV 71.8 FL (86-99); MONOCYTE (%) 8.1 % (3-12); MONOCYTE COUNT 0.7 K/uL (0-0.8); NEUTROPHIL (%) 73.8 % (45-76); PLATELET COUNT 284 K/uL (156-360); RBC DIS.WIDTH-CV 15.1 % (11.8-14.6); RBC DIS.WIDTH-SD 38.8 % (39-53); RED BLOOD COUNT 4.19 M/uL (4.00-5.50); WHITE BLOOD COUNT 8.1 K/uL (4.1-10.2)
[2018-03-14 07:41] VITALS: BP 171/81
[2018-03-14] MEDS ORDERED: FAMOTIDINE20 MG PO (09:46)
[2018-03-14] MEDS ORDERED: PREDNISONE10 MG PO (09:46)
[2018-03-14] MEDS ORDERED: AMOX TR-K CLV1 EAC4 PO (09:46)
== END 2018-03-14 11:57 | disposition home or self-care (01) | DRG 291 ==
LOC: EME 19:16 → EDOF 23:44 → 5SOUTH 23:44 → ENRESERV 23:46 → 5SOUTH 03-07 01:08 → ENRESERV 03-07 20:49 → 4EAST 03-07 22:19 → ENRESERV 03-11 16:57 → 2EAST 03-11 18:12
PROVIDERS: Emergency Medicine; Hospitalist; Internal Medicine; Internal Medicine Nephrology; Internal Medicine Pulmonary Disease; Physician Assistant Medical
PROC: 5A09357 Assistance with Respiratory Ventilation, Less than 24 Consecutive Hours, Continuous Positive Airway Pressure (ICD-10-PCS; principal; 2018-03-12)
DX: I13.0 Hypertensive heart and chronic kidney disease with heart failure and stage 1 through stage 4 chronic kidney disease, or unspecified chronic kidney disease (principal); I50.33 Acute on chronic diastolic (congestive) heart failure; J96.01 Acute respiratory failure with hypoxia; J18.9 Pneumonia, unspecified organism; N17.9 Acute kidney failure, unspecified; T36.8X5A Adverse effect of other systemic antibiotics, initial encounter; E87.5 Hyperkalemia; N18.3 Chronic kidney disease, stage 3 (moderate); R80.9 Proteinuria, unspecified; R73.03 Prediabetes; G47.33 Obstructive sleep apnea (adult) (pediatric); J98.01 Acute bronchospasm; F12.90 Cannabis use, unspecified, uncomplicated; F10.10 Alcohol abuse, uncomplicated; E66.01 Morbid (severe) obesity due to excess calories; Y95 Nosocomial condition; Z68.36 Body mass index [BMI] 36.0-36.9, adult; Z79.52 Long term (current) use of systemic steroids; Z86.73 Personal history of transient ischemic attack (TIA), and cerebral infarction without residual deficits; Z87.01 Personal history of pneumonia (recurrent); Z87.891 Personal history of nicotine dependence; Z82.49 Family history of ischemic heart disease and other diseases of the circulatory system
CPT/HCPCS: 36600; 71045; 71046; 80048; 80053; 80200; 80202; 81003; 82728; 82803; 83540; 83605; 83735; 83880; 84145 90; 84466; 84484; 85025; 85027; 87040; 87070; 87205; 87449; 87502; 87641; 93005; 93970; 94640; 94640 76; 94660; 94760; 94799; 99202; 99281; 99284; J1650; J1940; J2060; J2543; J2920; J2930; J3010; J3260; J3370; J7050; J7512